=== PATIENT | female | born 1985 | race Caucasian/White ===

== ENCOUNTER 2016-10-29 18:31 | Emergency (ER) | payer BC ==
[2016-10-29 18:43] VITALS: BP 118/81
--- NOTE | 2016-10-29 19:31 | UC ---
Lower Extremity/Ankle HPI - HPI Summary HPI Summary: 31 y/o female with no PMH noted while running to feel a "pop" in L calf, immediate pain, patient was able to hop back home, has crutches from prior ankle injuries from soccer. no prior calf injuries, no coolness/ able to move ankle, feet however painful. 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 - mother Hx Last Menstrual Period: 10/11/16 Onset/Duration: Sudden Onset, Lasting Minutes, Still Present Severity Initially: Moderate Severity Currently: Moderate - Allergies/Home Medications Allergies/Adverse Reactions: Allergies Allergy/AdvReac Type Severity Reaction Status Date / Time Latex Allergy Intermediate Rash Verified 10/20/15 19:10 Home Medications: Home Medications Doxycycline 1 cap PO BEDTIME 10/29/16 [History Confirmed 10/29/16] PMH/Surg Hx/FS Hx/Imm Hx Previously Healthy: Yes Other History Of: Negative For: HIV - Surgical History Surgical History: Yes Surgery Procedure, Year, and Place: T & A, turbinates reduced - Family History Known Family History: Positive: None, Diabetes, Respiratory Disease - ASTHMA Negative: Cardiac Disease, Hypertension - Social History Alcohol Use: Weekly Alcohol Amount: wine Substance Use Type: None Smoking Status (MU): Former Smoker Type: Cigarettes When Did the Patient Quit Smoking/Using Tobacco: 2011 - Immunization History Most Recent Influenza Vaccination: fall 2014 Hx Tetanus, Diphtheria Vaccination: Yes Vaccination Up to Date: Yes Review of Systems Musculoskeletal: Calf Tenderness, Decreased ROM, Myalgia All Other Systems Reviewed And Are Negative: Yes Physical Exam Triage Information Reviewed: Yes Appearance: Well-Appearing, Well-Nourished, Pain Distress - mild to moderate with movement Vital Signs: Initial Vital Signs Temp 98.5 F 10/29/16 18:36 Pulse 62 10/29/16 18:36 Resp 18 10/29/16 18:36 BP 118/81 10/29/16 18:36 Pulse Ox 99 10/29/16 18:36 Vital Signs Reviewed: Yes Musculoskeletal: Positive: No Edema, Other: - achillies test neg for rupture, no signs of compartment syndrome, calf defect medial distal gastronemus with tenderness over site with increased tenderness over region, small mass palpable different from R calf. calf soft, + df/Pf b/l with decreased df due to pain on L leg, full inver/ ever, abd/ add. PT 2+ full ROm toes L side. no knee pain, no tenderness to ankle palpation/ strength testing. Neurological Exam: Normal Neurological: Positive: Muscle Tone Normal Skin Exam: Normal Lower Extremity Course/Dx - Course Course Of Treatment: Unable to obtain imaging on todays examination due to no US , unable to perform CT due to tech present. Follow up with orhto within 24-48 hours. non-weight bearing until eval'd, crutches. - Differential Dx/Diagnosis Differential Diagnosis/HQI/PQRI: Bursitis, Cellulitis, Infection, Sprain, Strain Provider Diagnoses: gasronemus sprain L Discharge - Discharge Plan Condition: Stable Disposition: HOME Prescriptions: oxyCODONE/Acetamin 5/325 MG* [Percocet 5/325 TAB*] 1 tab PO Q4H PRN #20 tab MDD 6 PRN Reason: Pain Patient Education Materials: Oxycodone/Acetaminophen (By mouth), Muscle Strain (ED) Forms: *Work Release Referrals: Fidencio Perera MD [Medical Doctor] - (Orthopedic doctor, follow up within 24-48 hours for re-eval ) Yemi Cunningham MD [Medical Doctor] - (Follow up within 24 hours, call for appointment, State OK'd by Sun to be seen by Dr. Cunningham ) No Primary Care Phys,NOPCP [Medical Doctor] - Additional Instructions: - Follow up with orthopedist within 24-48 hours - KARY wrap for comfort - ICE, elevation - Non-weight bearing until evaluated - Ok to have motrin/ alleve in 24 hours - Go immediately to ER with increased calf pain, decreased movement, cold extremity
== END 2016-10-29 19:45 | disposition home or self-care (01) ==
LOC: UCEAST 18:31
DX: S86.812A Strain of other muscle(s) and tendon(s) at lower leg level, left leg, initial encounter (principal)
CPT/HCPCS: 99212; G0463

== ENCOUNTER 2018-05-18 13:18 | Emergency (ER) | payer OTHER ==
[2018-05-18 15:29] VITALS: BP 127/71
--- NOTE | 2018-05-18 16:11 | UC ---
Abdominal Pain Female HPI - HPI Summary HPI Summary: Pt is approximately 7-8 weeks gestation, she thinks, with a quantitative HCG of 1000 one week ago. She just had another quantitative drawn today but does not have the results yet. She states she has had worsening lower abdominal cramping and low back pain over the past week with no spotting. She has had a documented positive test. LMP end of February. She wanted to be tested for a UTI since she had the back pain. - History of Current Complaint Chief Complaint: UCGU Stated Complaint: URINARY COMP Time Seen by Provider: 05/18/18 15:14 Hx Obtained From: Patient Hx Last Menstrual Period: 03/26/18 Onset/Duration: Gradual Onset Timing: Constant Severity Initially: Mild Severity Currently: Mild Pain Intensity: 4 Location: Other - Mild lower abdominal cramping Radiates: No Character: Cramping Aggravating Factor(s): Nothing Alleviating Factor(s): Nothing Associated Signs and Symptoms: Positive: Back Pain - Low back soreness Allergies/Adverse Reactions: Allergies Allergy/AdvReac Type Severity Reaction Status Date / Time latex Allergy Rash Verified 05/18/18 15:19 Home Medications: Home Medications Vit No.129/Iron/Folic [ One Daily] 1 tab PO DAILY 05/18/18 [ History Confirmed 05/18/18] PMH/Surg Hx/FS Hx/Imm Hx Previously Healthy: Yes Other History Of: Negative For: HIV - Surgical History Surgical History: Yes Surgery Procedure, Year, and Place: T & A. turbinates reduced - Family History Known Family History: Positive: None, Diabetes, Respiratory Disease - ASTHMA Negative: Cardiac Disease, Hypertension - Social History Alcohol Use: None Alcohol Amount: wine Substance Use Type: None Smoking Status (MU): Former Smoker Type: Cigarettes Amount Used/How Often: SOCIALLY When Did the Patient Quit Smoking/Using Tobacco: 7 wks ago - Immunization History Most Recent Influenza Vaccination: fall 2014 Hx Tetanus, Diphtheria Vaccination: Yes Vaccination Up to Date: Yes Review of Systems All Other Systems Reviewed And Are Negative: Yes Gastrointestinal: Positive: Other - Lower abdominal cramping, no spotting Genitourinary: Positive: Negative Musculoskeletal: Positive: Other: - Mild low back pain Is Patient Immunocompromised?: No Physical Exam Triage Information Reviewed: Yes Appearance: Well-Appearing, No Pain Distress, Well-Nourished Vital Signs: Initial Vital Signs Temp 97.9 F 05/18/18 15:22 Pulse 81 05/18/18 15:22 Resp 18 05/18/18 15:22 BP 127/71 05/18/18 15:22 Pulse Ox 100 05/18/18 15:22 Vital Signs Reviewed: Yes Neck exam: Normal Neck: Positive: Supple, Nontender, No Lymphadenopathy Respiratory Exam: Normal Cardiovascular Exam: Normal Abdominal Exam: Normal Bowel Sounds: Positive: Present Musculoskeletal Exam: Normal Neurological Exam: Normal Psychological Exam: Normal Skin Exam: Normal Abd Pain Female Course/Dx - Course Course Of Treatment: Comfortable here. We do not have the ability to perform ultrasound at this time. U/A was negative. I feel it is important for pt to be evaluated today and have a transvaginal ultrasound. I explained the importance of having this done today and advised she follow up with her DIGITAL CAMERA TECHNICIAN or go to the ER. The preferable place today is the ER. She is agreeable to going directly to the ER from here and prefers to go by private car and not ambulance. She had a quantitative HCG done today and the ER staff will be able to retrieve that information as well. The risks of ruptured ectopic were discussed with the patient should she decide not to go to the ER. She states she would definitely go there now. - Differential Dx/Diagnosis Provider Diagnosis: Abdominal pain during Discharge - Sign-Out/Discharge Documenting (check all that apply): Patient Departure All imaging exams completed and their final reports reviewed: No Studies - Discharge Plan Condition: Good Disposition: HOME Referrals: Junie Estrada PA [Primary Care Provider] - Additional Instructions: Because you have had a positive test and are having abdominal cramping and low back pain, it is recommended that you be evaluated in the Emergency Room today. - Billing Disposition and Condition Condition: GOOD Disposition: Home
== END 2018-05-18 16:15 | disposition home or self-care (01) ==
LOC: UCCORT 13:18
DX: O99.89 Other specified diseases and conditions complicating pregnancy, childbirth and the puerperium (principal); R10.30 Lower abdominal pain, unspecified; M54.5 Low back pain; Z91.040 Latex allergy status; Z87.891 Personal history of nicotine dependence; Z3A.08 8 weeks gestation of pregnancy
CPT/HCPCS: 81003; 99211; G0463